=== PATIENT | male | born 2000 | race African-American/Black ===

== ENCOUNTER 2021-05-18 14:00 | Emergency (ER) | payer OTHER, SELFPAY | END 2021-05-18 16:34 | disposition left against medical advice (07) | PROVIDERS: Emergency Provider Emergency Medicine | DX: R50.9 Fever, unspecified (principal); R43.9 Unspecified disturbances of smell and taste ==

== ENCOUNTER 2021-05-18 15:41 | Outpatient (REF) | payer OTHER, SELFPAY | END 2021-05-18 15:42 | disposition home or self-care (01) | LOC: HO.LAB 15:41 | PROVIDERS: Visit Provider Internal Medicine | DX: Z20.822 Contact with and (suspected) exposure to COVID-19 (principal) | CPT/HCPCS: C9803; U0003; U0005 ==